=== PATIENT | male | born 2000 | race Two or more races ===

== ENCOUNTER 2024-12-01 20:44 | Emergency (ER) | payer SELFPAY ==
[2024-12-01 20:45] VITALS: BMI 24.3
[2024-12-01 21:38] VITALS: BP 121/68; PULSE 61; RESP 16; TEMP 36.8; O2SAT 98
--- NOTE | 2024-12-01 21:41 | PD.EDHAND ---
Upper Extremity Injury RME/HPI General Chief Complaint: Hand/Wrist Problems Stated Complaint: RIGHT FINGER INJURY Time Seen by Provider: 12/01/24 21:35 Arrival date/time: 12/01/24 20:44 24 year old male present to emergency room with c/o of finger injury 1 week ago. pt is not updated with tetanus. LOCATION: finger SEVERITY: Symptoms are described as being severe with limitations on activities of daily living QUALITY: Symptoms are described as being dull or achy CONTEXT: injury finger at work 1 week ago DURATION/TIMING: The symptoms started approximately 7days ago and have been constant this then. ASSOCIATED SYMPTOMS: The patient is unable to identify any other associated symptoms. MODIFYING FACTORS: The patient is unable to identify any alleviating or aggravating symptoms. PERTINENT ROS: no fevers, no headache, no neck or chest pain, no unexplained nausea or vomiting, no focal neurological deficits REVIEW OF SYSTEMS: See History of Present Illness - with the exception of those mentioned in the history of present illness, all other systems reviewed and reported as negative GENERAL: In general the patient is awake, interactive, in an emergency department gurney. HEAD/EYES/EARS/NOSE/THROAT: normo-cephalic, atraumatic, mucus membranes are moist, anicteric, palpebral conjunctiva is pink, trachea is midline. NEUROLOGICAL: cranio-facial features are symmetric, moves all four extremities equally without obvious limitations or weakness. EXTREMITY: right hand index finger mcp + healing infection, rom/strenght intact, nontenderness, fdp/fds intact no tenderness to palpation over the long bones or large joints of the bilateral upper and lower extremities, no joint swelling, no joint erythema, no unilateral leg swelling and no peripheral edema. SKIN: warm, dry, well-perfused, no jaundice, no rash, no telangiectasias or petechia. PSYCH: calm, cooperative, no evidence of psychosis or agitation Related Data Previous Rx's ?Medication ?Instructions ?Recorded dicyclomine 10 mg capsule 10 mg PO QID #7 caps 05/28/18 famotidine 20 mg tablet (Pepcid) 20 mg PO QDAY #10 tabs 05/28/18 ibuprofen 800 mg tablet 800 mg PO TID PRN pain #30 tabs 06/14/24 cephalexin 500 mg capsule 500 mg PO BID 10 days #20 caps 12/01/24 Allergies Allergy/AdvReac Type Severity Reaction Status Date / Time No Known Allergies Allergy Verified 12/01/24 20:45 Course Course Course Narrative: Patient presenting with finger injury 1 week ago following traumatic injury.? Xrays decline, report no pain,? ?No vascular compromise w/ <2sec capillary refill.? Sensation grossly intact.? Patient provided tetaus and keflex? in the ED.? Instructed to use ibuprofen, tylenol, elevation, and ice as needed for pain.? Return to ER if severe pain, concern for infection, or any other concerns.?? Plan: Discharge from ED Instructed Pt on proper care and supportive therapies, including OTC NSAIDs as directed prn, cold application, elevation of the digit, rest and protecting the joint from further injury, and to advance gradually ROM/strengthening exercises as tolerated. Follow up with pcp if symptoms continue beyond? week or if new symptoms develop? Instructed Pt to f/up w/ ETC should worrisome S/Sx present. Pt verbally expressed understanding and all questions were addressed to Pt's satisfaction. Quality Measures none Orders Category Date Time Status Tetanus, Diphtheria Toxoids/Pf [Tenivac-Adult] Med 12/01/24 21:40 Discontinued 0.5 ml IMI .ONCE ONE cephALEXin [Keflex] Med 12/01/24 21:40 Discontinued 500 mg PO X1 ONE Vital Signs Vital signs: Vital Signs Temperature 98.3 F 12/01/24 21:38 Pulse Rate 61 12/01/24 21:38 Respiratory Rate 16 12/01/24 21:38 Blood Pressure 121/68 12/01/24 21:38 Pulse Oximetry (%) 98 12/01/24 21:38 Oxygen Delivery Method Room Air 12/01/24 21:38 Extremity Injury Patient data External records reviewed:: [facility] previous records Clinical information provided by:: patient Social determinants that could affect healthcare access:: none Patient has the following chronic illnesses:: n/a How is presenting disease/condition affected by chronic disease/condition?: no chronic disease Evaluation data The following diagnostics were reviewed and interpreted by me:: radiology exam(s) Lab and/or radiology exams considered but not ordered:: n/a Interpretation Summary: n/a Medications / Prescriptions Medications or Prescriptions considered but not ordered:: n/a Medication administrations:: Medication Administration History Discontinued Medications Cephalexin HCl (Cephalexin 250 Mg Capsule) 500 mg PO X1 ONE Stop: 12/01/24 21:41 Tetanus/Diphtheria Toxoids (Tetanus,Diphtheria Toxoids/Pf (Adult) 0.5 Ml Syringe) 0.5 ml IMi .ONCE ONE Stop: 12/01/24 21:41 as stated above Consultations Consultation(s) initiated? (list below): No Diagnosis Upper Extremity Injury Differential Diagnosis: other (finger infection ) Most likely diagnosis given after review of the tests above:: finger infection Admission Indicated Admission indicated?: not indicated Admission Request Was there a request for admission?: No Disposition Plan Disposition Plan: Discharge Discharge Attestation Discharge Attestation: The patient and all family members were given an opportunity to ask questions and understood the discharge instructions. Discharge instructions specifically effects, indications for sooner follow up or return to the emergency department, and the expected course of current diagnosis. Patient condition: Stable Discharge Plan Plan Patient Disposition: HOME (Self Care) Prescriptions/Referrals Prescriptions/Med Rec: New cephalexin 500 mg capsule 500 mg PO BID 10 Days Qty: 20 0RF No Action famotidine [Pepcid] 20 mg tablet 20 mg PO QDAY Qty: 10 0RF dicyclomine 10 mg capsule 10 mg PO QID Qty: 7 0RF ibuprofen 800 mg tablet 800 mg PO TID PRN (Reason: pain) Qty: 30 0RF Problem List Clinical Impression: Finger infection Patient/Caregiver Discharge Instructions Education Materials: ED Wound Check (Infection) Print Language: Dominican Stand Alone Forms: Maida Award Info., Patient Portal Info Letter
[2024-12-01] MEDS: TETANUS,DIPHTHERIA TOXOIDS/PF (ADULT) 0.5 ML SYRINGE IMi (21:55)
[2024-12-01] MEDS: cephALEXin 250 MG CAPSULE 500 MG PO (21:55)
[2024-12-01 22:13] VITALS: RESP 16
== END 2024-12-01 22:14 | disposition home or self-care (01) ==
PROVIDERS: Emergency Provider Emergency Medicine
DX: L08.9 Local infection of the skin and subcutaneous tissue, unspecified (principal); Z23 Encounter for immunization
CPT/HCPCS: 90471; 90714; 99282; A9270